=== PATIENT | female | born 1960 | race Caucasian/White ===

== ENCOUNTER 2018-01-12 04:35 | Emergency (ER) | payer BC ==
[2018-01-12] MEDS ORDERED: Ketorolac INJ* 30 MG/ML 1 ML VIAL IV PUSH PRN (05:00)
[2018-01-12 05:17] LABS: ABS Basophils 0 10^3/ul (0-0.2); ABS Eosinophils 0.1 10^3/ul (0-0.6); ABS Lymphocytes 2.3 10^3/ul (1.0-4.8); ABS Monocytes 0.6 10^3/ul (0-0.8); ABS Nucleated RBC 0 10^3/ul; Hematocrit 37 % (35-47); Hemoglobin 12.7 g/dl (12.0-16.0); Lymphocyte % 32.4 % (25-47); Mean Corpuscular HGB Conc 34 g/dl (31-36); Mean Corpuscular Hemoglobin 29 pg (27-31); Mean Corpuscular Volume 85 fL (80-97); Nucleated Red Blood Cells % 0; Platelet Count 191 10^3/ul (150-450); Red Blood Count 4.39 10^6/ul (4.0-5.4); Red Cell Distribution Width 13 % (10.5-15)
[2018-01-12] MEDS ORDERED: Ketorolac INJ* 30 MG/ML 1 ML VIAL IV PUSH ONE (05:18)
[2018-01-12] MEDS ORDERED: Ondansetron INJ* 2 MG/ML VIAL IV ONE (05:24)
[2018-01-12] MEDS ORDERED: Morphine VIAL* 4 MG/ML VIAL (1 ml vial) IV ONE (05:24)
[2018-01-12 05:27] LABS: INR 0.88 (0.77-1.02)
[2018-01-12 05:47] LABS: EGFR Non-African American 71.4 (>60)
[2018-01-12] MEDS ORDERED: Iohexol 350* (CONTRAST) 500 ML MDV IV ONE (06:29)
--- NOTE | 2018-01-12 06:57 | ED ---
Aroldo Salas Elizabeth, scribed for Mukul Wetzel MD on 01/12/18 at 0500 . GI/ HPI - HPI Summary HPI Summary: This patient is a 57 year old F presenting to [facility] with a chief complaint of intermittent left flank pain since 1 day ago. The patient reports that the pain worsened yesterday evening. The patient reports that the pain radiates to her left shoulder blade and LUQ. The patient rates the pain 5/10 in severity. Symptoms aggravated by deep breaths and positioning. Symptoms alleviated by positioning. Patient reports recent stress due to a in the family. Patient denies nausea, vomiting, shortness of breath. - History of Current Complaint Chief Complaint: EDFlankPain Time Seen by Provider: 01/12/18 04:50 Stated Complaint: FLANK PAIN Hx Obtained From: Patient Onset/Duration: Started Days Ago - 1 day ago, Still Present, Worse Since - last night Timing: Intermittent Severity: Mild Current Severity: Moderate Pain Intensity: 5 Location of Pain: LUQ, Flank - left flank Pain Radiates to: Back - left shoulder, Flank Associated Signs and Symptoms: Positive: Other: - negative shortness of breath. Negative: Nausea, Vomiting Aggravating Factor(s): Movement, Deep Breaths Alleviating Factor(s): Nothing - Allergy/Home Medications Allergies/Adverse Reactions: Allergies Allergy/AdvReac Type Severity Reaction Status Date / Time cefaclor Allergy Hives Verified 01/12/18 04:44 Penicillins Allergy Hives Verified 01/12/18 04:44 Sulfa (Sulfonamide Allergy Hives Verified 01/12/18 04:44 Antibiotics) NSAIDS (Non-Steroidal AdvReac Edema Verified 01/12/18 05:13 Anti-Inflamma PMH/Surg Hx/FS Hx/Imm Hx Endocrine/Hematology History: Reports: Hx Thyroid Disease - hypo Cardiovascular History: Reports: Hx Hypercholesterolemia, Hx Hypertension Respiratory History: Reports: Hx Asthma, Hx Sleep Apnea - current CPAP user GI History: Reports: Hx Gastroesophageal Reflux Disease, Other GI Disorders - stress incontinence Sensory History: Reports: Hx Contacts or Glasses Opthamlomology History: Reports: Hx Contacts or Glasses - Surgical History Surgery Procedure, Year, and Place: 1986 [facility] - wisdom teeth. 1990 [facility] - laparoscopy r/o endometriosis. 2002 [facility] - laparoscopy of uterus. 2007 [facility] - anal sphincterotomy (fistula correction). 2010 [facility] - D&C, hysteroscopy (benign) Infectious Disease History: No Infectious Disease History: Reports: Traveled Outside the [place] in Last 30 Days - Family History Known Family History: Negative: Seizure Disorder Review of Systems Negative: Epistaxis Negative: Shortness Of Breath Positive: Abdominal Pain - LUQ pain. Negative: Vomiting, Nausea Positive: flank pain - left flank pain Musculoskeletal: Other - left shoulder pain Negative: Headache All Other Systems Reviewed And Are Negative: Yes Physical Exam - Summary Physical Exam Summary: VITAL SIGNS: Reviewed. GENERAL: ~Patient is a well-developed and nourished female who is lying comfortable in the stretcher. Patient is not in any acute respiratory distress. HEAD AND FACE: No signs of trauma. No ecchymosis, hematomas or skull depressions. No sinus tenderness. EYES: PERRLA, EOMI x 2, No injected conjunctiva, no nystagmus. EARS: Hearing grossly intact. Ear canals and tympanic membranes are within normal limits. MOUTH: Oropharynx within normal limits. NECK: Supple, trachea is midline, no adenopathy, no JVD, no carotid bruit, no c- spine tenderness, neck with full ROM. CHEST: Symmetric, tenderness over left chest wall posteriorly and anteriorly. LUNGS: Clear to auscultation bilaterally. No wheezing or crackles. CVS: Regular rate and rhythm, S1 and S2 present, no murmurs or gallops appreciated. ABDOMEN: Soft. Tenderness over left chest wall posteriorly and anteriorly. No signs of distention. No rebound no guarding, and no masses palpated. Bowel sounds are normal. EXTREMITIES: FROM in all major joints, no edema, no cyanosis or clubbing. NEURO: Alert and oriented x 3. No acute neurological deficits. Speech is normal and follows commands. SKIN: Dry and warm Triage Information Reviewed: Yes Vital Signs On Initial Exam: Initial Vitals Temp Pulse Resp BP Pulse Ox 97.9 F 58 20 132/76 99 01/12/18 04:37 01/12/18 04:37 01/12/18 04:37 01/12/18 04:37 01/12/18 04:37 Vital Signs Reviewed: Yes Diagnostics - Vital Signs Vital Signs Temp Pulse Resp BP Pulse Ox 01/12/18 04:37 97.9 F 58 20 132/76 99 - Laboratory Result Diagrams: 01/12/18 05:07 01/12/18 05:07 Lab Statement: Any lab studies that have been ordered have been reviewed, and results considered in the medical decision making process. - Radiology CXR Xray Interpretation: No Acute Changes Radiology Interpretation Completed By: ED Physician - Dr. Wetzel, pending official report - EKG 05:03 Cardiac Rate: NL - at 59 BPM EKG Rhythm: Sinus Rhythm EKG Interpretation: normal axis, normal interval, no ischemic changes GIGU Course/Dx - Course Course Of Treatment: An EKG reveals NSR at 59 BPM with normal axis, normal intervals, and no ischemic changes. CXR reveals no acute changes, as interpreted by Dr. Wetzel, pending official report. ED physician has reviewed this radiology report. In the ED course the patient was given Toradol, morphine , and Zofran. The patient will be signed out to Dr. Gould upon shift change pending CT Chest. - Diagnoses Provider Diagnoses: Chest wall pain Discharge - Sign-Out/Discharge Documenting (check all that apply): Sign-Out Patient Signing out patient TO: Shahab Gould - Discharge Plan Condition: Stable Discharge Disposition Comment: Patient is signed out to Dr. Gould upon shift change pending CT Chest Referrals: Laurie Alvarado MD [Primary Care Provider] - The documentation as recorded by the Aroldo gautam Elizabeth accurately reflects the service I personally performed and the decisions made by Rashard maharaj Abdul, MD.
--- NOTE | 2018-01-12 07:44 | RAD ---
INDICATION: Chest pain. Short of breath. Evaluate for pulmonary embolus. COMPARISON: Chest x-ray January 12, 2018 TECHNIQUE: Axial source images were obtained from the thoracic inlet to the hemidiaphragms following administration of [address] angiographic technique was utilized. Coronal and sagittal reconstructed images were acquired. CHEST FINDINGS: Neck/thyroid: The visualized neck to include the thyroid appear normal. Chest wall: There are no acute abnormalities of the bony thorax or chest wall. There is no supraclavicular, infraclavicular, or axillary lymphadenopathy. Lungs : There are no pulmonary parenchymal masses or infiltrates. The pulmonary interstitium appears normal. There are no endobronchial lesions. Cardiomediastinal structures: There is no CT evidence of acute pulmonary embolic disease. The heart is normal in size. There is no pericardial effusion. There is no evidence of aortic aneurysm or dissection. There is no mediastinal or hilar adenopathy. The esophagus appears normal. Pleura : There are no pleural-based masses or effusions. Other: There is a 8 mm hypodensity in the left hepatic lobe. This is an indeterminate finding but likely represents an incidental cyst or hemangioma. IMPRESSION: NO CT EVIDENCE OF ACUTE PULMONARY EMBOLIC DISEASE. LUNGS CLEAR.
--- NOTE | 2018-01-12 08:09 | RAD ---
HISTORY: Chest pain COMPARISONS: None VIEWS: 1: frontal portable view of the chest at 5:24 AM FINDINGS: LINES AND TUBES: None. CARDIOMEDIASTINAL SILHOUETTE: The cardiomediastinal silhouette is normal for portable technique. PLEURA: The costophrenic angles are sharp. No pleural abnormalities are noted. LUNG PARENCHYMA: The lungs are clear. ABDOMEN: The upper abdomen is clear. There is no subphrenic gas. BONES AND SOFT TISSUES: No bone or soft tissue abnormalities are noted. IMPRESSION: NO ACTIVE CARDIOPULMONARY DISEASE.
[2018-01-12 09:43] LABS: Urine Appearance Clear; Urine Blood Negative (Negative); Urine Color Straw; Urine Ketones Negative (Negative); Urine Protein Negative (Negative); Urine Specific Gravity 1.006 (1.010-1.030); Urine Urobilinogen Negative (Negative)
[2018-01-12 09:52] VITALS: BP 127/75
--- NOTE | 2018-01-12 10:36 | ED ---
Shabana Salas Gabriel, scribed for Shahab Gould MD on 01/12/18 at 0818 . Progress - Progress Note Progress Note: This patient was signed out from Dr. Wetzel, pending disposition, awaiting CTA Chest. CTA Chest reveals NO CT EVIDENCE OF ACUTE PULMONARY EMBOLIC DISEASE. LUNGS CLEAR. ED physician has reviewed this report. The patients condition is stable and will be discharged to home with Dx of chest pain. Re-Evaluation - Re-Evaluation First Eval Re-Evaluation Time: 09:25 Change: Unchanged Comment: Patient was informed of CT results and discharge. Course/Dx - Course Course Of Treatment: This patient was signed out from Dr. Wetzel, pending disposition, awaiting CTA Chest. CTA Chest reveals NO CT EVIDENCE OF ACUTE PULMONARY EMBOLIC DISEASE. LUNGS CLEAR. ED physician has reviewed this report. The patients condition is stable and will be discharged to home with Dx of chest pain. - Diagnoses Provider Diagnoses: Chest pain Discharge - Sign-Out/Discharge Documenting (check all that apply): Discharge/Admit/Transfer, Receiving Sign-Out Receiving patient FROM: Mukul Wetzel - Discharge Plan Condition: Stable Disposition: HOME Patient Education Materials: Chest Pain (ED) Referrals: Laurie Alvarado MD [Primary Care Provider] - 3 Days Additional Instructions: Take Aleve as needed for pain. RETURN TO THE EMERGENCY DEPARTMENT FOR CHANGING OR WORSENING SYMPTOMS - Billing Disposition and Condition Condition: STABLE Disposition: HOME The documentation as recorded by the Shabana gautam Gabriel accurately reflects the service I personally performed and the decisions made by , Shahab Gould MD.
== END 2018-01-12 09:50 | disposition home or self-care (01) ==
LOC: ED 04:35
DX: R07.89 Other chest pain (principal); E78.00 Pure hypercholesterolemia, unspecified; I10 Essential (primary) hypertension; G47.30 Sleep apnea, unspecified; J45.909 Unspecified asthma, uncomplicated; E03.9 Hypothyroidism, unspecified
CPT/HCPCS: 36415; 71045; 71275; 80053; 81003; 82550; 83605; 83735; 84484; 85025; 85379; 85610; 85730; 86140; 93005; 96374; 96375; 96376; 99283; J1885; J2270; J2405; Q9967